=== PATIENT | male | born 1975 | race Caucasian/White ===

== ENCOUNTER 2023-04-30 09:01 | Emergency (ER) | payer OTHER ==
[~2023-04-30] VITALS: Ht 172.7 cm; Wt 73.5 kg
== END 2023-04-30 13:17 | disposition home or self-care (01) ==
LOC: ER 09:01
DX: J06.9 Acute upper respiratory infection, unspecified (principal); Z20.822 Contact with and (suspected) exposure to COVID-19

== ENCOUNTER 2024-10-07 07:50 | Outpatient (CLI) | payer OTHER ==
[2024-10-07 08:56] LABS: URINE APPEARANCE Clear; URINE BILIRRUBIN Negative (NEGATIVE); URINE BLOOD Negative; URINE COLOR Yellow; URINE GLUCOSE Negative (NEGATIVE); URINE KETONE Negative (NEGATIVE); URINE LEUKOCYTE Negative; URINE NITRATE Negative; URINE PROTEIN Negative (NEGATIVE); URINE UROBILINOGEN 0.2 E.U./dl
[2024-10-07 09:02] LABS: HEMATOCRIT 42.1 % (39.0-48.0); HEMOGLOBIN 14.5 g/dL (13-16.00); MEAN CELL VOLUME 93.5 fL (80.0-100.00); MEAN CORPUSCULAR HEMOGLOBIN 32.3 pg (27.00-32.0); MEAN CORPUSCULAR HGB CONC 34.5 g/dl (32.0-36.0); PLATELET COUNT 161 K/uL (150-450); RED CELL DISTRIBUTION WIDTH 12.8 % (11.5-14.5)
[2024-10-07 09:02] LABS: URINE WBC 1.8 uL (0.0-23.2)
[2024-10-07 09:10] LABS: URINE BACTERIA 2.4 uL (0.0-1933); URINE EPITHELIAL CELLS 0.6 uL (0.0-38.8)
[2024-10-07 09:20] LABS: ERYTHROCYTE SEDIMENTATION RATE < 1 mm/hr
[2024-10-07 10:10] LABS: ALBUMIN 3.8 gm/dL (3.4-5.0); ALKALINE PHOSPHATASE 44 U/L (50-136); ALT/SGPT 41 U/L (12-78); ANION GAP 8 (10.0-20.0); AST/SGOT 26 U/L (15-37); BILIRUBIN TOTAL 0.36 mg/dL (0.3-1.2); BLOOD UREA NITROGEN 18 mg/dL (7-18); BUN CREA RATIO 20 (7.0-25.0); CARBON DIOXIDE 30 mEq/L (21-32); CHLORIDE 108 mmol/L (98-107); CHOL HDL RATIO 3.2 (0-5.0); CHOLESTEROL 186 mg/dL (0-200); GFR 89.69; GLOBULINA 3.2 G/DL (2.4-3.5); GLUCOSE FASTING 79 mg/dL (65-100); HDL 58 mg/dl (40-60); LDL 113 mg/dl (0-130); OSMOLALITY SERUM 282 MOSM/KG (275-295); POTASSIUM 4.56 mEq/L (3.5-5.1); PROSTATIC SPECIFIC ANTIGEN 0.462 NG/ML (0.010-4.00); SODIUM 141 mmol/L (136-145); TRIGLYCERIDES 73 mg/dL (0-150); VLDL 14 (0-39)
[2024-10-07 10:15] LABS: C-REACTIVE PROTEIN < 0.29 MG/DL (0.00-0.29)
[2024-10-07 12:41] LABS: VITAMIN D3 25 HYDROXY 42.88 ng/ml (30-120)
== END 2024-10-07 07:55 | disposition home or self-care (01) ==
LOC: LAB 07:50
PROVIDERS: ATTEND Specialist
DX: I11.9 Hypertensive heart disease without heart failure (principal); R73.09 Other abnormal glucose; E03.9 Hypothyroidism, unspecified; R30.0 Dysuria; Z12.11 Encounter for screening for malignant neoplasm of colon; D51.3 Other dietary vitamin B12 deficiency anemia; E55.9 Vitamin D deficiency, unspecified; M85.89 Other specified disorders of bone density and structure, multiple sites

== ENCOUNTER 2025-01-20 13:20 | Outpatient (CLI) | payer OTHER | END 2025-01-20 13:25 | disposition home or self-care (01) | LOC: RAD 13:20 | PROVIDERS: ATTEND Physical Medicine & Rehabilitation | DX: M25.551 Pain in right hip (principal) ==

== ENCOUNTER 2025-02-17 07:52 | Outpatient (CLI) | payer OTHER | END 2025-02-17 08:05 | disposition home or self-care (01) | LOC: MRI 07:52 | PROVIDERS: ATTEND Physical Medicine & Rehabilitation | DX: M54.51 Vertebrogenic low back pain (principal) | CPT/HCPCS: 72148 ==